=== PATIENT | female | born 1990 | race Caucasian/White ===

== ENCOUNTER 2021-06-11 12:09 | Emergency (ER) | payer OTHER ==
[~2021-06-11] VITALS: Ht 172.7 cm; Wt 113.4 kg
[2021-06-11] MEDS ORDERED: METFORMIN HCL500 M4 PO (12:35)
[2021-06-11] MEDS ORDERED: VALSARTAN160 MG PO (12:36)
[2021-06-11] MEDS ORDERED: ORTHO TRI-CYCL1 EACH (12:36)
[2021-06-11] MEDS ORDERED: ZOLOFT25 MG PO (12:36)
[2021-06-11] MEDS ORDERED: TOPROL XL50 M1 (12:36)
[2021-06-11] MEDS ORDERED: NEURONTIN800 MG PO (12:37)
[2021-06-11] MEDS ORDERED: CLARITIN10 M1 (12:37)
[2021-06-11] MEDS ORDERED: NEURONTIN300 MG PO (12:37)
[2021-06-11] MEDS ORDERED: SINGULAIR 10MG10 MG PO (12:37)
== END 2021-06-11 16:07 | disposition home or self-care (01) ==
LOC: ER 12:09
DX: R10.2 Pelvic and perineal pain (principal)

== ENCOUNTER 2022-01-27 11:23 | Emergency (ER) | payer OTHER ==
[~2022-01-27] VITALS: Ht 172.7 cm; Wt 116.6 kg
[~2022-01-27 11:23] MED LIST: CLARITIN10 M1; METFORMIN HCL500 M4 PO; NEURONTIN300 MG PO; NEURONTIN800 MG PO; ORTHO TRI-CYCL1 EACH; SINGULAIR 10MG10 MG PO; TOPROL XL50 M1; VALSARTAN160 MG PO; ZOLOFT25 MG PO
== END 2022-01-27 18:51 | disposition home or self-care (01) ==
LOC: ER 11:23
DX: K29.70 Gastritis, unspecified, without bleeding (principal); I10 Essential (primary) hypertension; E11.9 Type 2 diabetes mellitus without complications; R10.2 Pelvic and perineal pain

== ENCOUNTER → 2025-01-15 | Emergency (ER) | payer OTHER ==
[~2025-01-15] VITALS: Ht 172.7 cm; Wt 104.3 kg
[~2025-01-15] MED LIST changes: +DIPHENHYDRAMINE HCL 50 MG/ML VIAL 1ML IM STA; +DIPHENHYDRAMINE HCL 50 MG/ML VIAL 1ML ONE; +IBU600 MG PO; +ITCH RELIEF15 G1 TOP; +KETOROLAC TROMETHAMINE 30 MG VIAL IM STA; +KETOROLAC TROMETHAMINE 30 MG VIAL ONE; +ZOVIRAX400 MG PO
[2025-01-15 06:01] LABS: BASO % 0.4 % (0.1-1.2); EOS # 0.45 (0.04-0.54); EOS % 2.8 % (0.7-7.0); LYMPH # 4.97 (1.18-3.74); LYMPH % 31.2 % (19.3-53.1); MEAN PLATELET VOLUME 11.20 fl (9.4-12.4); MONO # 1.15 (0.24-0.82); MONO % 7.2 % (4.7-12.5); NEUT # 9.25 (1.56-6.13); NEUT % 58.1 % (34.0-71.1); RED CELL DISTRIBUTION WIDTH 12.3 % (11.6-14.4)
[2025-01-15 07:27] LABS: URINE APPEARANCE Turbid; URINE BILIRRUBIN Negative (NEGATIVE); URINE BLOOD Negative; URINE COLOR Yellow; URINE GLUCOSE Negative (NEGATIVE); URINE KETONE Negative (NEGATIVE); URINE LEUKOCYTE Small; URINE NITRATE Negative; URINE PROTEIN Negative (NEGATIVE); URINE UROBILINOGEN 1.0 E.U./dl
[2025-01-15 07:31] LABS: URINE BACTERIA 1167.9 uL (0.0-1933); URINE EPITHELIAL CELLS 101.9 uL (0.0-38.8); URINE RBC 292.5 uL (0.0-20.8); URINE WBC 18.2 uL (0.0-23.2)
[2025-01-15 07:44] LABS: URINE CAST 0.28 uL (0.0-1.40)
[2025-01-15 07:50] LABS: TYPE CELLS SQUAMOUS; URINE CRYSTALS MODERATE /HPF; URINE YEAST MODERATE /hpf
== END | disposition home or self-care (01) ==
LOC: ER 01:44
PROVIDERS: General Practice
DX: A60.04 Herpesviral vulvovaginitis (principal); R10.23 Pelvic and perineal pain bilateral; I10 Essential (primary) hypertension; K20.0 Eosinophilic esophagitis; E11.9 Type 2 diabetes mellitus without complications; Z79.84 Long term (current) use of oral hypoglycemic drugs; L29.2 Pruritus vulvae; B37.31 Acute candidiasis of vulva and vagina